=== PATIENT | male | born 1975 | race Caucasian/White ===

== ENCOUNTER → 2018-12-06 10:57 | Outpatient (CLI) | payer OTHER ==
--- NOTE | 2018-12-14 08:49 | EC ---
PATIENT:MARIA T LILLY DATE OF SERVICE: 12/06/18 SEX: M MEDICAL RECORD: [id number] DATE OF : [birth year] LOCATION:[facility] AGE OF PATIENT: 43 ADMISSION DATE: 12/06/18 REFERRING PHYSICIAN: INTERPRETING PHYSICIAN: TANNER ATKINS MD ECHOCARDIOGRAM REPORT ECHO CHARGES 4 ECHO COMPLETE Date: 12/06/18 CLINICAL DIAGNOSIS: HEART MURMUR ECHOCARDIOGRAPHIC MEASUREMENTS (adult normal given) AC root (d.<3.7cm) 2.9 cm LV Septum d (<1.2 cm> 1.5 cm Valve Excursion 1.2 cm LV Septum (systole) 1.7 cm Left Atria (s.<4.0cm> 3.7 cm LVPW d(<1.2cm) 1.5 cm RV (d.<2.3cm) 2.7 cm LVPW (sytole) 1.6 cm LV diastole(<5.6CM) 5.5 cm MV E-F(>70mm/sec) cm LV systole 4.1 cm LVOT Diameter 1.8 cm MV exc.(>10mm) 2.4 cm Est.ejection fraction (50-75%) % DOPPLER: LVIT cm/sec A 54.0 cm/sec E 67.0 cm/sec LA cm/sec RVSP 28 mmHg LVOT 94 cm/sec AOP1/2T m/s Asc. Ao 132 cm/sec RVOT 71 cm/sec RA cm/sec PA 159 cm/sec AV Gradient Peak 6.95 mmHg AV Mean 3.96 mmHg AV Area 1.7 cm MV Gradient Peak 2.38 mmHg MV Mean 1.03 mmHg MV Area cm COMMENTS: Beater Engineer Helper: 2 KAY SEGURA Hot Box Checker: 3 Dr. Shrestha TAPE# PACS Pericardial Effusion N DATE OF SERVICE: 12/06/2018 Adequate 2-D echo, color-flow and spectral Doppler, and M-Mode. Mild LVH. LV internal dimension is normal. Wall motion is normal. EF is 55%. Aortic valve is tricuspid. No evidence of stenosis by Doppler interrogation. Left atrium is normal at 3.7 cm. Mitral valve shows no prolapse. Mild MR. Right-sided chambers are grossly normal. Trace TR. TRANSINT:[id number] Voice Confirmation ID: [id number] DOCUMENT ID: [id number] ECHOCARDIOGRAM REPORT [id number] MARIA T LILLY GREGORY A MD at 0849 CC: [id number] DICTATION DATE: 12/09/18 1517 WOMEN'S SOCCER COACH: 12/09/182009 DEP CLI 12/06/18 [id number] [place] [address]
--- NOTE | 2018-12-15 10:38 | ST ---
PATIENT:MARIA T LILLY MEDICAL RECORD: [id number] SEX: M LOCATION:[facility] ORDER #: ADMISSION DATE: 12/06/18 AGE OF PATIENT: 43 REFERRING PHYSICIAN: INTERPRETING PHYSICIAN: CHAPARRITA RAMIREZ MD DATE OF SERVICE: 12/06/2018 PROCEDURE: Nuclear stress test. INDICATION: Angina, hypertension, abnormal ECG, shortness of breath. He was exercised on standard Moy protocol for 10 minutes achieving greater than 85% maximum target heart rate response with 32 mCi of sestamibi injected at peak stress. Rest images done previously with 11 mCi. FINDINGS: Gated SPECT reveals preserved ejection fraction at 55% with good wall motion and thickening and brightening throughout all segments. SPECT imaging Cardiolite was used as myocardial fusion agent. There is homogeneous uptake throughout all segments at rest and stress with no evidence of inducible ischemia or previous infarction. OVERALL IMPRESSION: 1. This is a normal nuclear stress test with no evidence of inducible ischemia or previous infarction. 2. Gated SPECT reveals a preserved ejection fraction at 55%. In this patient with ongoing symptomatology, the current scan does not suggest the presence of hemodynamically significant coronary artery disease. Evaluate noncardiac etiology of chest pain. TRANSINT:[id number] Voice Confirmation ID: [id number] DOCUMENT ID: [id number] CHAPARRITA RAMIREZ MD at 1038 CC: [id number] DICTATION DATE: 12/07/18 1034 SENIOR PUBLICATIONS SPECIALIST: 12/07/18 1106 DEP CLI 12/06/18 [address] [id number]
== END | disposition home or self-care (01) ==
LOC: D.HCCARDIO 10:57
PROVIDERS: ATTEND Internal Medicine Interventional Cardiology
DX: R01.1 Cardiac murmur, unspecified (principal)

== ENCOUNTER 2019-05-19 13:30 | Emergency (ER) | payer OTHER ==
[~2019-05-19] VITALS: Ht 193 cm; Wt 100.0 kg
[2019-05-19 13:34] VITALS: Ht 193 cm; Wt 100.0 kg
[2019-05-19] MEDS ORDERED: ZOLOFT25 MG PO (13:35)
[2019-05-19] MEDS ORDERED: COZAAR100 MG PO (13:35)
[2019-05-19] MEDS ORDERED: OMEPRAZOLE40 MG PO (13:35)
[2019-05-19] MEDS ORDERED: ASPIRIN81 MG (13:37)
[2019-05-19] MEDS ORDERED: ZANAFLEX4 MG PO (13:37)
[2019-05-19] MEDS ORDERED: BETA BLOCKER (13:38)
[2019-05-19] MEDS ORDERED: PROTONIX40 MG PO (15:38)
[2019-05-19] MEDS ORDERED: TOPROL XL50 MG PO (15:38)
[2019-05-19 16:30] VITALS: BP 113/84
== END 2019-05-19 16:31 | disposition home or self-care (01) ==
LOC: D.ER 13:30
DX: F41.9 Anxiety disorder, unspecified (principal); I10 Essential (primary) hypertension

== ENCOUNTER 2019-07-11 14:53 | Emergency (ER) | payer OTHER ==
[~2019-07-11] VITALS: Ht 193 cm; Wt 102.3 kg
[~2019-07-11 14:53] MED LIST: ASPIRIN81 MG; BETA BLOCKER; COZAAR100 MG PO; OMEPRAZOLE40 MG PO; PROTONIX40 MG PO; TOPROL XL50 MG PO; ZANAFLEX4 MG PO; ZOLOFT25 MG PO
[2019-07-11 14:57] VITALS: Ht 193 cm; Wt 102.3 kg
[2019-07-11] MEDS ORDERED: CATAPRES0.1 MG PO (14:59)
[2019-07-11] MEDS ORDERED: HYDROCHLOROTHIA25 MG PO (15:00)
[2019-07-11] MEDS ORDERED: BENADRYL25 MG PO (15:01)
[2019-07-11] MEDS ORDERED: NAPROSYN500 MG PO (16:04)
[2019-07-11] MEDS ORDERED: CYCLOBENZAPRINE10 MG PO (16:04)
[2019-07-11] MEDS ORDERED: PREDNISONE10 MG PO (16:04)
[2019-07-11 17:00] VITALS: BP 137/98
[2019-07-12] MEDS ORDERED: TYLENOL W/CODEI1 TAB PO (10:44)
== END 2019-07-11 17:00 | disposition home or self-care (01) ==
LOC: D.ER 14:53
DX: S16.1XXA Strain of muscle, fascia and tendon at neck level, initial encounter (principal); V89.2XXA Person injured in unspecified motor-vehicle accident, traffic, initial encounter; Y93.9 Activity, unspecified; Y92.9 Unspecified place or not applicable; M62.838 Other muscle spasm; S29.012A Strain of muscle and tendon of back wall of thorax, initial encounter; I10 Essential (primary) hypertension

== ENCOUNTER 2019-07-12 09:06 | Emergency (ER) | payer OTHER ==
[~2019-07-12] VITALS: Ht 193 cm; Wt 102.3 kg
[~2019-07-12 09:06] MED LIST changes: +BENADRYL25 MG PO; +CATAPRES0.1 MG PO; +CYCLOBENZAPRINE10 MG PO; +HYDROCHLOROTHIA25 MG PO; +NAPROSYN500 MG PO; +PREDNISONE10 MG PO
[2019-07-12 09:17] VITALS: Ht 193 cm; Wt 102.3 kg
[2019-07-12] MEDS ORDERED: TYLENOL W/CODEI1 TAB PO (10:44)
[2019-07-12 11:07] VITALS: BP 124/79
== END 2019-07-12 11:06 | disposition home or self-care (01) ==
LOC: D.ER 09:06
DX: T14.8XXA Other injury of unspecified body region, initial encounter (principal); V89.2XXA Person injured in unspecified motor-vehicle accident, traffic, initial encounter; Y93.9 Activity, unspecified; Y92.9 Unspecified place or not applicable; S13.4XXA Sprain of ligaments of cervical spine, initial encounter; I10 Essential (primary) hypertension

== ENCOUNTER 2019-10-23 03:42 | Emergency (ER) | payer OTHER ==
[~2019-10-23] VITALS: Ht 193 cm; Wt 104.5 kg
[~2019-10-23 03:42] MED LIST changes: +TYLENOL W/CODEI1 TAB PO
[2019-10-23 03:48] VITALS: Ht 193 cm; Wt 104.5 kg
[2019-10-23] MEDS ORDERED: XANAX0.25 MG PO (03:50)
[2019-10-23] MEDS ORDERED: ULTRAM50 MG PO (03:50)
[2019-10-23] MEDS ORDERED: DEXILANT30 MG PO (03:51)
[2019-10-23] MEDS ORDERED: HYDROCODON-ACE1 EA10 PO (04:29)
[2019-10-23 04:55] VITALS: BP 140/106
== END 2019-10-23 04:55 | disposition home or self-care (01) ==
LOC: D.ER 03:42
DX: S92.401A Displaced unspecified fracture of right great toe, initial encounter for closed fracture (principal); W22.8XXA Striking against or struck by other objects, initial encounter; Y93.9 Activity, unspecified; Y92.9 Unspecified place or not applicable; I10 Essential (primary) hypertension

== ENCOUNTER 2020-02-23 09:26 | Day surgery (SDC) | payer OTHER ==
[2020-02-22 10:27] LABS: CALC OSMOLALITY 277 mosm/kg (275-300); CALCIUM 8.8 mg/dL (8.5-10.1); CARBON DIOXIDE 32.7 mmol/L (21.0-32.0); CHLORIDE - SERUM 104 mmol/L (98-107); CREATININE - SERUM 1.1 mg/dL (0.6-1.3); GLUCOSE 105 mg/dL (74-106); POTASSIUM - SERUM 4.3 mmol/L (3.5-5.1); SODIUM 139 mmol/L (136-145); UREA NITROGEN 13 mg/dL (7-18); eGFR NON AFRICAN AMERICAN 76 mL/min (90-120)
[2020-02-22 10:29] LABS: HEMATOCRIT 42.2 % (42.0-54.0); MCH 32.6 pg (26.0-34.0); MCHC 35.5 g/dL (31.0-37.0); MCV 91.7 fL (80.0-100.0); MEAN PLATELET VOLUME 8.4 fL (7.4-10.4); RBC 4.6 10x6/uL (4.20-6.10); RDW 12.6 % (11.5-14.5); WBC 5.4 10x3/uL (4.8-10.8)
[2020-02-23] VITALS (7 sets, daily range): BP systolic 153–166; BP diastolic 100–114; Ht 193 cm; Wt 105.2 kg
[~2020-02-23] VITALS: Ht 193 cm; Wt 105.2 kg
--- NOTE | ~2020-02-23 | OP ---
PATIENT NAME: MARIA T LILLY MEDICAL RECORD: [id number] :71 LOCATION:[facility] ADMISSION DATE: SURGEON: JAGUAR SANDOVAL MD DATE OF OPERATION: 02/23/2020 PREOPERATIVE DIAGNOSES: Osteophyte formation and disc herniation at C4-C5 and C5-C6, bilateral C5 and C6 radiculopathies. POSTOPERATIVE DIAGNOSES: Osteophyte formation and disc herniation at C4-C5 and C5-C6, bilateral C5 and C6 radiculopathies. PROCEDURE: Anterior cervical discectomy and removal of osteophytes at C4-C5 and C5-C6. Mobi-C artificial disc replacement arthroplasty at C4-C5 and C5-C6. SURGEON: Jaguar Sandoval MD IRRIGATION SUPERVISOR: Joe Rueda APN DESCRIPTION AND TECHNIQUE: After induction of general endotracheal anesthesia, the patient was positioned supine on the operating table with the cervical spine in a neutral position. After infiltration of 1:100,000 epinephrine with 1% lidocaine, a transverse skin incision was carried out from the midline to the sternocleidomastoid muscle. The platysma was divided with sharp dissection with a #15 blade. Using blunt and sharp dissection with Metzenbaum scissors, I proceeded in avascular plane medial to the carotid sheath. The C4-C5 and C5-C6 interspaces were identified with fluoroscopic x-ray. A self-retaining retractor was placed deep to the longus colli muscles after elevation with Bovie cautery. A [place] pin was placed by the C4, C5 and C6. Each disc space was incised with a #11 blade under distraction. The disc material was removed with pituitary rongeurs and curettes. The cartilaginous endplates were prepared with curettes. Under microscopic illumination, osteophytes drilled away posteriorly with a Midas-Florian drill. The posterior longitudinal ligament was removed with Cloward rongeurs. Following this, the dura was well decompressed and appropriate size Mobi-C artificial cervical disc was placed in the disc space under distraction at C4-C5 and C5-C6. Good position of the hardware was confirmed with fluoroscopic x-ray. Meticulous hemostasis was maintained throughout the wound. Care was taken to wax the bony edges to where the [place] pins were placed to eliminate any egress of blood from the cancellous bone. The platysma and subdermal layer closed with interrupted 3-0 Vicryl suture. The skin was reapproximated with Steri-Strips and benzoin. A sterile dressing was applied to the wound. The patient was awakened in good condition, taken to recovery. All counts were reported as correct. Estimated blood loss was minimal. Joe Rueda APN was patient support assistant throughout the case. He assisted with retraction, hemostasis and mechanical components of the case and inserting a Mobi-C artificial cervical disc at C4-C5, C5-C6. He was present throughout the entirety of the case. TRANSINT:[id number] Voice Confirmation ID: [id number] DOCUMENT ID: [id number] OPERATIVE REPORT [id number] MARIA T LILLY JOHN MD CC: [id number] DICTATION DATE: 02/27/20 08 SILVERWARE BUFFER: 02/27/201935 [facility] 02/24/20 [address] [address] [place] [address]
[~2020-02-23 09:26] MED LIST changes: +BUPRENORPHINE HC2 MG SL; +DEXILANT30 MG PO; +HYDROCODON-ACE1 EA10 PO; +LEXAPRO20 MG PO; +ULTRAM50 MG PO; +XANAX0.25 MG PO
--- NOTE | 2020-02-23 17:53 | NUR ---
NO DIFFICULTY SWALLOWING NO TRACHAEL DEVIATION, EQUAL STRENGHTS IN ALL 4 EXTREMETIES, NO NUMBNESS OR TINGLING REPORTED
--- NOTE | 2020-02-23 18:38 | NUR ---
CARE TO DRE CHURCH @0813
--- NOTE | 2020-02-23 18:41 | NUR ---
1846 RECEIVED REPORT FROM Amandeep PRICE RN TO TAKE OVER CARE. PATIENT AWAKE AND ALERT X 3
--- NOTE | 2020-02-23 19:38 | NUR ---
PT RECIEVED VIA BED FROM RECOVERY ROOM, A/OX4, INCISION TO RIGHT NECK WITH DERMABOND TO SITE, LEFT FA PIV INTACT WITH IVF INFUSING, ALEX PATENT TO BSD, SPOUSE PRESENT, ASSESSMENT COMPLETED, WILL CONT TO MONITOR
--- NOTE | 2020-02-23 20:07 | NUR ---
TEXTED DR ELIZABETH, PT STATES HE NEEDS STRONGER PAIN MED, ORDERS RECIEVED
--- NOTE | 2020-02-23 21:40 | NUR ---
CALLED DR MACK, HOME MEDS RESTARTED
[2020-02-24] VITALS (8 sets, daily range): BP systolic 98–162; BP diastolic 62–117
[2020-02-24] MEDS ORDERED: HYDROCODON-ACE1 EA10 PO (07:09)
[2020-02-24] MEDS ORDERED: MEDROL DOSE PACK4 MG PO (07:11)
[2020-02-24] MEDS ORDERED: PERCOCET 10-321 EAC1 PO (08:03)
--- NOTE | 2020-02-24 08:46 | NUR ---
0750: ALEX KRISHNAN'Juan. 0800: DR. ELIZABETH HERE. ORDERS REC'D FOR DISCHARGE. 0830: UP TO RESTROOM AND VOIDED. 0845: IV Rose CABAN.
== END 2020-02-24 09:08 | disposition home or self-care (01) ==
LOC: D.CVICU 09:26 → D.OPS 09:26 → D.CVICU 18:02 → D.OPS 02-24 09:08
PROVIDERS: Anesthesiology; ATTEND Neurological Surgery
DX: M50.121 Cervical disc disorder at C4-C5 level with radiculopathy (principal); M25.78 Osteophyte, vertebrae